=== PATIENT | male | born 1975 | race Caucasian/White ===

== ENCOUNTER 2017-05-15 08:50 | Emergency (ER) | payer MEDICAID ==
[~2017-05-15] VITALS: Ht 167.6 cm; Wt 108.0 kg
[~2017-05-15 08:50] MED LIST: ALD25T PO; CHLO25CA10 PO; FURO-150 PO; LACT10SO7 PO
[2017-05-15] MEDS ORDERED: ondansetron 4mg rapidly disintigrating tab PO ONE (09:10)
[2017-05-15 10:01] LABS: CLARITY,URINE SLIGHTLY CLOUDY (Clear); COLOR,URINE AMBER (Yellow)
[2017-05-15 10:08] LABS: ALANINE AMINOTRANSFERASE 85 U/L (12-78); ALBUMIN 2.6 G/DL (3.4-5.0); ALKALINE PHOSPHATASE 288 IU/L (46-116); ANION GAP 9 (8-16); ASPARTATE AMINO TRANSFERASE 231 U/L (10-37); BLOOD UREA NITROGEN 11 MG/DL (7-18); BUN/CREATININE RATIO 15.3 (5.4-32.0); CALCIUM 8.8 MG/DL (8.5-10.1); CHLORIDE 94 MMOL/L (99-107); CREATININE 0.72 MG/DL (0.60-1.10); GLUCOSE 145 MG/DL (70-104); LIPASE 106 U/L (73-393); SODIUM 135 MMOL/L (135-145); TOTAL CARBON DIOXIDE 32.2 MMOL/L (24-32); eGFR > 90 ML/MIN
[2017-05-15 10:11] LABS: ALBUMIN/GLOBULIN RATIO 0.5 (1.1-1.5); POTASSIUM 3.6 MMOL/L (3.5-5.1); TOTAL PROTEIN 8.1 G/DL (6.4-8.2)
[2017-05-15 10:12] LABS: BASOPHILS # (AUTO) 0.3 X10'3 (0-0.2); BASOPHILS % (AUTO) 1.9 % (0-1); EOSINOPHILS % (AUTO) 0.2 % (0-6); HEMATOCRIT 40.3 % (42.0-52.0); HEMOGLOBIN 14.4 g/dl (14.0-17.9); LYMPHOCYTES % (AUTO) 21.4 % (21-51); MEAN CORPUSCULAR HEMOGLOBIN 34.2 PG (27.0-31.0); MEAN CORPUSCULAR HGB CONC 35.7 % (33.0-36.5); MEAN CORPUSCULAR VOLUME 95.8 FL (78-98); MEAN PLATELET VOLUME 8.6 FL (7.4-10.4); MONOCYTES # (AUTO) 1.7 X10'3 (0-0.9); MONOCYTES % (AUTO) 11.7 % (2-12); NEUTROPHILS # (AUTO) 9.2 X10'3 (1.8-7.7); NEUTROPHILS % (AUTO) 64.8 % (42-75); PLATELET COUNT 181 X10'3 (140-440); RED BLOOD COUNT 4.21 X10'6 (4.70-6.10); RED CELL DISTRIBUTION WIDTH 15.5 % (11.5-14.5); WHITE BLOOD COUNT 14.2 X10'3 (4.5-11.0)
[2017-05-15 10:19] LABS: UA COLLECTION TYPE CLN CATCH MIDSTREAM
[2017-05-15 10:20] LABS: MUCUS STRANDS MODERATE /LPF (Neg); SQUAMOUS EPITHELIAL CELL,UR MODERATE /LPF (FEW)
[2017-05-15 10:21] LABS: BACTERIA,URINE FEW /HPF (Neg); RBC,URINE 0-2 /HPF (0-2); TRANSITIONAL EPI CELLS,URINE FEW /HPF; WBC,URINE 0-4 /HPF (0-4)
[2017-05-15] MEDS ORDERED: iohexol 300mg/ml 100ml inj. ONE (10:54)
[2017-05-15 10:55] LABS: ETHANOL 0.026 GM/DL (0.0-0.010)
[2017-05-15] MEDS ORDERED: CHLO25CA10 PO (11:53)
[2017-05-15] MEDS ORDERED: chlordiazePOXIDE 25mg capsule PO ONE (11:55)
[2017-05-15 12:10] VITALS: BP 122/64
== END 2017-05-15 12:12 | disposition home or self-care (01) ==
LOC: ER 08:50
DX: K70.10 Alcoholic hepatitis without ascites (principal); F17.210 Nicotine dependence, cigarettes, uncomplicated; Z88.8 Allergy status to other drugs, medicaments and biological substances; Z79.899 Other long term (current) drug therapy
CPT/HCPCS: 36415; 74177; 80053; 80320; 81001; 82140; 83690; 85025; 99285; J7030; Q9967

== ENCOUNTER 2017-06-03 18:58 | Inpatient (IN) | payer MEDICAID ==
[~2017-06-03] VITALS: Ht 175.3 cm; Wt 98.8 kg
[2017-06-03] MEDS ORDERED: ondansetron 4mg rapidly disintigrating tab PO ONE (19:35)
[2017-06-03] MEDS ORDERED: normal saline 1000ml 1,000 ML IV ONE (19:35)
[2017-06-03] MEDS ORDERED: proCHLORperazine 10 MG/2 ml inj IV ONE (19:35)
[2017-06-03 20:06] LABS: BASOPHILS % (AUTO) 0 % (0-1); EOSINOPHILS # (AUTO) 0.6 X10'3 (0-0.9); EOSINOPHILS % (AUTO) 2.1 % (0-6); HEMATOCRIT 36.4 % (42.0-52.0); LYMPHOCYTES # (AUTO) 1.2 X10'3 (1.1-4.8); LYMPHOCYTES % (AUTO) 4.4 % (21-51); MEAN CORPUSCULAR HEMOGLOBIN 34.3 PG (27.0-31.0); MEAN CORPUSCULAR HGB CONC 35.8 % (33.0-36.5); MEAN CORPUSCULAR VOLUME 95.8 FL (78-98); MEAN PLATELET VOLUME 9.1 FL (7.4-10.4); MONOCYTES # (AUTO) 0.1 X10'3 (0-0.9); MONOCYTES % (AUTO) 0.5 % (2-12); NEUTROPHILS # (AUTO) 26.2 X10'3 (1.8-7.7); PLATELET COUNT 119 X10'3 (140-440); RED CELL DISTRIBUTION WIDTH 16.3 % (11.5-14.5)
[2017-06-03 20:10] LABS: WHITE BLOOD COUNT 28.2 X10'3 (4.5-11.0)
[2017-06-03 20:16] LABS: INR 2.2 INR; PARTIAL THROMBOPLASTIN TIME 41 SECONDS (22-32); PROTHROMBIN TIME 21.7 SECONDS (9.0-12.0)
[2017-06-03 20:32] LABS: ALANINE AMINOTRANSFERASE 65 U/L (12-78); ALBUMIN 1.5 G/DL (3.4-5.0); ANION GAP 29 (8-16); CALCIUM 6.5 MG/DL (8.5-10.1); CHLORIDE 82 MMOL/L (99-107); CREATININE 15.61 MG/DL (0.60-1.10); ETHANOL < 0.010 GM/DL (0.0-0.010); LIPASE 554 U/L (73-393); SODIUM 127 MMOL/L (135-145); TOTAL CARBON DIOXIDE 16.2 MMOL/L (24-32); eGFR 3 ML/MIN
[2017-06-03 20:45] LABS: ALBUMIN/GLOBULIN RATIO 0.3 (1.1-1.5); ALKALINE PHOSPHATASE 290 IU/L (46-116); ASPARTATE AMINO TRANSFERASE 154 U/L (10-37); TOTAL PROTEIN 6.6 G/DL (6.4-8.2)
[2017-06-03 20:50] LABS: BILIRUBIN,TOTAL 35.1 MG/DL (0.1-1.0); BLOOD UREA NITROGEN 158 MG/DL (7-18); BUN/CREATININE RATIO 10.1 (5.4-32.0); GLUCOSE 112 MG/DL (70-104); POTASSIUM 4.1 MMOL/L (3.5-5.1)
[2017-06-03 20:54] LABS: ANISOCYTOSIS 1+; PLATELET ESTIMATE DECREASED; TARGET CELLS FEW; TOTAL CELLS COUNTED 100
[2017-06-03] MEDS ORDERED: CefTRIAXone 2gm/NS 100ml IVPB 100 ML IV ONE (21:20)
[2017-06-03] MEDS ORDERED: levoFLOXACIN-Levaquin 500mg/D5 100 ML IV ONE (23:30)
[2017-06-04] VITALS (27 sets, daily range): BP systolic 81–113; BP diastolic 45–65
[2017-06-04] MEDS ORDERED: mag hydrox/Alum hydrox/simeth 30ml oral suspension PO ONE
[2017-06-04] MEDS ORDERED: NO HOME MEDS (00:15)
[2017-06-04] MEDS ORDERED: sodium bicarbonate (8.4%) inj. 150 MEQ in dextrose 5%-water 1,000 ML IV SCH (01:05)
[2017-06-04 02:18] LABS: ALBUMIN 1.4 G/DL (3.4-5.0); ANION GAP 25 (8-16); CALCIUM 6.1 MG/DL (8.5-10.1); CHLORIDE 84 MMOL/L (99-107); SODIUM 127 MMOL/L (135-145)
[2017-06-04 02:20] LABS: BLOOD UREA NITROGEN 167 MG/DL (7-18); BUN/CREATININE RATIO 10.7 (5.4-32.0); CREATININE 15.54 MG/DL (0.60-1.10); GLUCOSE 108 MG/DL (70-104); POTASSIUM 4.4 MMOL/L (3.5-5.1); eGFR 3 ML/MIN
[2017-06-04 02:28] LABS: CLARITY,URINE SLIGHTLY CLOUDY (Clear); COLOR,URINE BROWN (Yellow); GLUCOSE, URINE 100 mg/dl (Neg); KETONES,URINE NEGATIVE (Neg); LEUKOCYTE ESTERASE ,URINE NEGATIVE (Neg); NITRITES, URINE NEGATIVE (Neg); OCCULT BLOOD,URINE TRACE-INTACT (Neg); PH,URINE 5.5 (4.8-8.0); PROTEIN,URINE 100 mg/dl (Neg); UROBILINOGEN,URINE 0.2 E.U/dL (0.2-1.0)
[2017-06-04 02:31] LABS: UA COLLECTION TYPE FOLEY CATH
[2017-06-04 02:34] LABS: URINE AMPHETAMINE SCREEN NEGATIVE (Neg); URINE BARBITUATE SCREEN NEGATIVE (Neg); URINE BENZODIAZEPINES SCREEN POSITIVE (Neg); URINE CANNABINOID SCREEN NEGATIVE (Neg); URINE COCAINE SCREEN NEGATIVE (Neg); URINE METHADONE SCREEN NEGATIVE (Neg); URINE OPIATE SCREEN NEGATIVE (Neg); URINE PHENCYCLIDINE SCREEN NEGATIVE (Neg)
[2017-06-04 02:40] LABS: ABG BASE EXCESS -9.8 mmol/L (-2.0-3.0); ABG HCO3 14.6 mmol/L (22.0-26.0); ABG OXYGEN SATURATION 94.1 % (95-98); ABG PCO2 (T) 27.1 mmHg (35.0-48.0); ABG PH (T) 7.346 (7.350-7.450); ABG PO2 (T) 76.4 mmHg (83-108); ALLEN'S TEST Positive; FCOHb 1.1 % (0.5-1.5); FMetHb 0.1 % (0.3-1.12); PATIENT TEMPERATURE 36.4; TOTAL HEMOGLOBIN 12.4 G/dl (14.0-18.0)
[2017-06-04] MEDS ORDERED: sodium bicarbonate 1 MEQ/1 ml inj ONE (02:42)
[2017-06-04 02:46] LABS: BACTERIA,URINE FEW /HPF (Neg); RBC,URINE 0-2 /HPF (0-2); RENAL CELLS, URINE FEW /HPF; SQUAMOUS EPITHELIAL CELL,UR FEW /LPF (FEW)
[2017-06-04 02:47] LABS: AMORPHOUS URATES 1+
[2017-06-04] MEDS ORDERED: normal saline 1000ML IV soln IVB ONE (02:50)
[2017-06-04] MEDS ORDERED: morphine 4 MG/ML inj SYRINge IV PRN (02:55)
[2017-06-04] MEDS ORDERED: dextrose 50%-water 50ml dispensing syringe IV PRN (02:55)
[2017-06-04] MEDS ORDERED: calcium chloride 100 MG/1 ML inj IV ONE ×2 (02:55→02:58)
[2017-06-04] MEDS ORDERED: ondansetron/PF 4mg/2ml inj IV PRN (02:55)
[2017-06-04] MEDS ORDERED: LORazepam 2 mg/ml vial IV PRN (02:55)
[2017-06-04] MEDS ORDERED: acetaminophen 325mg tablet PO PRN ×2 (02:55)
[2017-06-04] MEDS ORDERED: LORazepam 1 MG tablet PO PRN (02:55)
[2017-06-04] MEDS ORDERED: sodium bicarbonate (8.4%) inj. 150 MEQ in sodium chloride 0.45% 850 ML IV SCH (03:06)
[2017-06-04] MEDS: pantoprazole 40 MG vial IV SCH (07:43)
[2017-06-04] MEDS: CefTRIAXone 2gm/NS 100ml IVPB 100 ML IV SCH (07:44)
[2017-06-04 08:08] LABS: CREATINE KINASE 25 U/L (39-308)
[2017-06-04] MEDS: levoFLOXACIN-Levaquin 250mg/D5 50 ML IV SCH (08:40)
[2017-06-04] MEDS: morphine 4 MG/ML inj SYRINge IV PRN ×2 (08:48→14:40)
[2017-06-04] MEDS ORDERED: phytonadione inj. 10 MG in normal saline 100ml IV soln 99 ML IV ONE (09:00)
[2017-06-04] MEDS ORDERED: albumin (human) 25% 100ml IV 100 ML IV PRN (09:05)
[2017-06-04] MEDS ORDERED: heparin 1,000 units/ml 10ml inj HE ONE ×2 (09:10)
[2017-06-04] MEDS ORDERED: mannitol 20% IV solution 250ml 62.5 ML IV ONE (09:10)
[2017-06-04] MEDS ORDERED: heparin 1,000unit/ml 10ml vial 10 ML ONE (11:06)
[2017-06-04] MEDS ORDERED: LIDOcaine 1%/PF (10mg/ml) 5ml vial ONE (11:06)
[2017-06-04] MEDS ORDERED: midazolam 2 mg/2 ml injection ONE (11:06)
[2017-06-04] MEDS ORDERED: fentaNYL/PF 50MCG/1 ML 2ML syringe ONE (11:06)
[2017-06-04] MEDS ORDERED: fentaNYL/PF 50MCG/1 ML 2ML syringe IV PRN (11:10)
[2017-06-04] MEDS ORDERED: midazolam 2 mg/2 ml injection IV PRN (11:10)
[2017-06-04] MEDS: MVI, adult No.4 with vit. K 10 ML in dextrose 5% water 500ml 490 ML IV SCH ×2 (12:26)
[2017-06-04] MEDS: thiamine 100mg tablet PO SCH (12:32)
[2017-06-04] MEDS: lactulose 20gm/30ml cup PO SCH ×2 (13:39→21:06)
[2017-06-04] MEDS: albumin (human) 25% 100 ML IV solution IV SCH (15:28)
[2017-06-04] MEDS: rifaximin 550mg tablet PO SCH (21:06)
[2017-06-05] VITALS (15 sets, daily range): BP systolic 79–110; BP diastolic 40–88
[2017-06-05] MEDS: albumin (human) 25% 100 ML IV solution IV SCH ×4 (00:26→23:36)
[2017-06-05] MEDS: lactulose 20gm/30ml cup PO SCH ×4 (02:14→19:53)
[2017-06-05 03:01] LABS: BASOPHILS % (AUTO) 0 % (0-1); EOSINOPHILS # (AUTO) 0.4 X10'3 (0-0.9); EOSINOPHILS % (AUTO) 1.4 % (0-6); LYMPHOCYTES # (AUTO) 1.5 X10'3 (1.1-4.8); LYMPHOCYTES % (AUTO) 5.8 % (21-51); MEAN PLATELET VOLUME 8.6 FL (7.4-10.4); MONOCYTES # (AUTO) 0.7 X10'3 (0-0.9); MONOCYTES % (AUTO) 2.7 % (2-12); NEUTROPHILS # (AUTO) 23.7 X10'3 (1.8-7.7); NEUTROPHILS % (AUTO) 90.1 % (42-75); PLATELET COUNT 97 X10'3 (140-440)
[2017-06-05 03:10] LABS: INR 1.9 INR; PARTIAL THROMBOPLASTIN TIME 40 SECONDS (22-32)
[2017-06-05 03:24] LABS: ALBUMIN 2.1 G/DL (3.4-5.0); ANION GAP 18 (8-16); BLOOD UREA NITROGEN 100 MG/DL (7-18); CALCIUM 7.1 MG/DL (8.5-10.1); CHLORIDE 92 MMOL/L (99-107); SODIUM 133 MMOL/L (135-145); TOTAL CARBON DIOXIDE 22.6 MMOL/L (24-32)
[2017-06-05 03:50] LABS: ALANINE AMINOTRANSFERASE 75 U/L (12-78); ALBUMIN/GLOBULIN RATIO 0.5 (1.1-1.5); ALKALINE PHOSPHATASE 257 IU/L (46-116); BILIRUBIN,TOTAL 36.1 MG/DL (0.1-1.0); MAGNESIUM 3.1 MG/DL (1.5-2.4); PHOSPHORUS 8.8 MG/DL (2.3-4.5); POTASSIUM 3.9 MMOL/L (3.5-5.1); TOTAL PROTEIN 6.1 G/DL (6.4-8.2)
[2017-06-05 03:52] LABS: ASPARTATE AMINO TRANSFERASE 157 U/L (10-37); BUN/CREATININE RATIO 9.5 (5.4-32.0); CREATININE 10.48 MG/DL (0.60-1.10); GLUCOSE 93 MG/DL (70-104); eGFR 5 ML/MIN
[2017-06-05 05:51] LABS: WHITE BLOOD COUNT 26.3 X10'3 (4.5-11.0)
[2017-06-05 05:52] LABS: HEMATOCRIT 29.7 % (42.0-52.0); HEMOGLOBIN 10.6 g/dl (14.0-17.9); MEAN CORPUSCULAR HEMOGLOBIN 33.9 PG (27.0-31.0); MEAN CORPUSCULAR HGB CONC 35.7 % (33.0-36.5); MEAN CORPUSCULAR VOLUME 95.1 FL (78-98); RED BLOOD COUNT 3.12 X10'6 (4.70-6.10); RED CELL DISTRIBUTION WIDTH 16.2 % (11.5-14.5)
[2017-06-05 05:56] LABS: BANDS% (MANUAL) 2 % (0-10); BASOPHILS % (MANUAL) 2 % (0-1); LYMPHOCYTES % (MANUAL) 4 % (21-51); MONOCYTES % (MANUAL) 6 % (2-12); NEUTROPHILS % (MANUAL) 87 % (42-75); TOTAL CELLS COUNTED 100
[2017-06-05 05:57] LABS: ANISOCYTOSIS 1+; PLATELET ESTIMATE DECREASED; TARGET CELLS FEW
[2017-06-05] MEDS: CefTRIAXone 2gm/NS 100ml IVPB 100 ML IV SCH (08:44)
[2017-06-05] MEDS: MVI, adult No.4 with vit. K 10 ML in dextrose 5% water 500ml 490 ML IV SCH ×2 (08:44)
[2017-06-05] MEDS: rifaximin 550mg tablet PO SCH ×2 (08:47→19:53)
[2017-06-05] MEDS: thiamine 100mg tablet PO SCH (08:47)
[2017-06-05] MEDS: pantoprazole 40 MG vial IV SCH (08:47)
[2017-06-05] MEDS ORDERED: heparin 1,000unit/ml 10ml vial 10 ML IV ONE (10:01)
[2017-06-05] MEDS ORDERED: albumin (human) 25% 100ml IV 100 ML IV PRN (10:05)
[2017-06-05] MEDS ORDERED: epoetin 20,000 units/ml inj IV ONE (10:05)
[2017-06-05] MEDS ORDERED: heparin 1,000 units/ml 10ml inj IV ONE (10:05)
[2017-06-05] MEDS ORDERED: heparin 1,000 units/ml 10ml inj HE ONE ×2 (10:05)
[2017-06-05] MEDS ORDERED: mannitol 20% IV solution 250ml 62.5 ML IV ONE (10:30)
[2017-06-05 13:28] LABS: HBSAG SCREEN Negative (Negative)
[2017-06-05] MEDS ORDERED: ondansetron 4mg rapidly disintigrating tab PO PRN (13:40)
[2017-06-05] MEDS: midodrine tablet 2.5 MG TABLET PO SCH ×2 (17:35→23:34)
[2017-06-05] MEDS: lactobacillus rhamnosus 10,000 MMU CELLS/CAPSULE PO SCH (19:53)
[2017-06-06] MEDS: lactulose 20gm/30ml cup PO SCH ×4 (02:00→20:00)
[2017-06-06 06:00] VITALS: BP 101/45
[2017-06-06 06:18] LABS: BASOPHILS # (AUTO) 0.1 X10'3 (0-0.2); BASOPHILS % (AUTO) 0.4 % (0-1); EOSINOPHILS # (AUTO) 0.4 X10'3 (0-0.9); EOSINOPHILS % (AUTO) 2.1 % (0-6); HEMOGLOBIN 9.4 g/dl (14.0-17.9); LYMPHOCYTES # (AUTO) 0.6 X10'3 (1.1-4.8); LYMPHOCYTES % (AUTO) 3.3 % (21-51); MEAN PLATELET VOLUME 8.3 FL (7.4-10.4); MONOCYTES # (AUTO) 0.7 X10'3 (0-0.9); MONOCYTES % (AUTO) 4.2 % (2-12); NEUTROPHILS # (AUTO) 15.9 X10'3 (1.8-7.7); PLATELET COUNT 65 X10'3 (140-440); RED CELL DISTRIBUTION WIDTH 16.4 % (11.5-14.5); WHITE BLOOD COUNT 17.7 X10'3 (4.5-11.0)
[2017-06-06 06:28] LABS: INR 1.8 INR; PARTIAL THROMBOPLASTIN TIME 44 SECONDS (22-32); PROTHROMBIN TIME 18.5 SECONDS (9.0-12.0)
[2017-06-06 06:44] LABS: ALBUMIN 2.3 G/DL (3.4-5.0); ANION GAP 15 (8-16); BLOOD UREA NITROGEN 63 MG/DL (7-18); CALCIUM 7.3 MG/DL (8.5-10.1); CHLORIDE 96 MMOL/L (99-107); SODIUM 135 MMOL/L (135-145); TOTAL CARBON DIOXIDE 24.3 MMOL/L (24-32)
[2017-06-06 06:46] LABS: ALANINE AMINOTRANSFERASE 66 U/L (12-78); ALKALINE PHOSPHATASE 235 IU/L (46-116); BILIRUBIN,TOTAL 33.8 MG/DL (0.1-1.0); BUN/CREATININE RATIO 7.9 (5.4-32.0); CREATININE 7.99 MG/DL (0.60-1.10); GLUCOSE 90 MG/DL (70-104); MAGNESIUM 2.5 MG/DL (1.5-2.4); PHOSPHORUS 4.9 MG/DL (2.3-4.5); POTASSIUM 3.5 MMOL/L (3.5-5.1); eGFR 7 ML/MIN
[2017-06-06 06:50] LABS: RED BLOOD COUNT 2.76 X10'6 (4.70-6.10)
[2017-06-06 06:51] LABS: HEMATOCRIT 26.4 % (42.0-52.0); MEAN CORPUSCULAR HEMOGLOBIN 33.9 PG (27.0-31.0); MEAN CORPUSCULAR HGB CONC 35.4 % (33.0-36.5); MEAN CORPUSCULAR VOLUME 95.7 FL (78-98)
[2017-06-06 07:04] LABS: ASPARTATE AMINO TRANSFERASE 143 U/L (10-37)
[2017-06-06 07:18] LABS: ALBUMIN/GLOBULIN RATIO 0.9 (1.1-1.5)
[2017-06-06] MEDS: thiamine 100mg tablet PO SCH (08:38)
[2017-06-06] MEDS: rifaximin 550mg tablet PO SCH ×2 (08:38→20:32)
[2017-06-06] MEDS: lactobacillus rhamnosus 10,000 MMU CELLS/CAPSULE PO SCH ×2 (08:38→20:32)
[2017-06-06] MEDS: multivitamins, therapeutics tablet PO SCH (08:38)
[2017-06-06] MEDS: midodrine tablet 2.5 MG TABLET PO SCH ×3 (08:39→23:41)
[2017-06-06] MEDS: albumin (human) 25% 100 ML IV solution IV SCH ×3 (08:41→23:43)
[2017-06-06] MEDS: CefTRIAXone 2gm/NS 100ml IVPB 100 ML IV SCH (08:41)
[2017-06-06] MEDS: levoFLOXACIN-Levaquin 250mg/D5 50 ML IV SCH (08:42)
[2017-06-06] MEDS ORDERED: heparin 1,000 units/ml 10ml inj HE ONE ×2 (08:45)
[2017-06-06] MEDS ORDERED: albumin (human) 25% 100ml IV 100 ML IV PRN (08:45)
[2017-06-06] MEDS: pantoprazole 40 MG vial IV SCH (08:49)
[2017-06-06] MEDS ORDERED: mannitol 20% IV solution 250ml 62.5 ML IV ONE (08:55)
[2017-06-06] MEDS: levoFLOXACIN 250mg tablet PO SCH (11:00)
[2017-06-06 16:11] LABS: LIPASE 340 U/L (73-393)
[2017-06-06 18:00] VITALS: BP 102/44
[2017-06-06 22:00] VITALS: BP 100/56
[2017-06-07] MEDS: lactulose 20gm/30ml cup PO SCH ×3 (02:00→13:25)
[2017-06-07 06:00] VITALS: BP 104/52
[2017-06-07 07:15] LABS: BASOPHILS % (AUTO) 0 % (0-1); EOSINOPHILS # (AUTO) 0.3 X10'3 (0-0.9); EOSINOPHILS % (AUTO) 1.3 % (0-6); HEMATOCRIT 26.5 % (42.0-52.0); HEMOGLOBIN 9.7 g/dl (14.0-17.9); LYMPHOCYTES # (AUTO) 0.8 X10'3 (1.1-4.8); LYMPHOCYTES % (AUTO) 3.4 % (21-51); MEAN CORPUSCULAR HEMOGLOBIN 35.1 PG (27.0-31.0); MEAN CORPUSCULAR HGB CONC 36.7 % (33.0-36.5); MEAN CORPUSCULAR VOLUME 95.6 FL (78-98); MEAN PLATELET VOLUME 7.9 FL (7.4-10.4); MONOCYTES % (AUTO) 4.4 % (2-12); NEUTROPHILS # (AUTO) 21.2 X10'3 (1.8-7.7); NEUTROPHILS % (AUTO) 90.9 % (42-75); PLATELET COUNT 77 X10'3 (140-440); RED BLOOD COUNT 2.77 X10'6 (4.70-6.10); WHITE BLOOD COUNT 23.4 X10'3 (4.5-11.0)
[2017-06-07 07:27] LABS: PARTIAL THROMBOPLASTIN TIME 38 SECONDS (22-32); PROTHROMBIN TIME 19.5 SECONDS (9.0-12.0)
[2017-06-07 07:28] LABS: TOTAL CELLS COUNTED 100
[2017-06-07 07:29] LABS: ANISOCYTOSIS 1+; PLATELET ESTIMATE DECREASED; POIKILOCYTOSIS FEW; TARGET CELLS 1+
[2017-06-07 07:42] LABS: ALBUMIN 2.6 G/DL (3.4-5.0); ANION GAP 13 (8-16); BLOOD UREA NITROGEN 47 MG/DL (7-18); CHLORIDE 97 MMOL/L (99-107); SODIUM 135 MMOL/L (135-145); TOTAL CARBON DIOXIDE 25.1 MMOL/L (24-32)
[2017-06-07 07:46] LABS: ALANINE AMINOTRANSFERASE 61 U/L (12-78); BILIRUBIN,TOTAL 37.2 MG/DL (0.1-1.0); BUN/CREATININE RATIO 6.6 (5.4-32.0); CREATININE 7.11 MG/DL (0.60-1.10); GLUCOSE 106 MG/DL (70-104); MAGNESIUM 2.3 MG/DL (1.5-2.4); PHOSPHORUS 3.9 MG/DL (2.3-4.5); POTASSIUM 3.6 MMOL/L (3.5-5.1); eGFR 8 ML/MIN
[2017-06-07 08:08] LABS: ALKALINE PHOSPHATASE 234 IU/L (46-116); ASPARTATE AMINO TRANSFERASE 132 U/L (10-37)
[2017-06-07 08:22] LABS: ALBUMIN/GLOBULIN RATIO 0.9 (1.1-1.5); TOTAL PROTEIN 5.4 G/DL (6.4-8.2)
[2017-06-07 10:00] VITALS: BP 100/47
[2017-06-07] MEDS: albumin (human) 25% 100 ML IV solution IV SCH ×2 (10:05→17:44)
[2017-06-07] MEDS: multivitamins, therapeutics tablet PO SCH (10:05)
[2017-06-07] MEDS: pantoprazole 40mg Tablet.DR PO SCH (10:06)
[2017-06-07] MEDS: rifaximin 550mg tablet PO SCH ×2 (10:06→19:50)
[2017-06-07] MEDS: thiamine 100mg tablet PO SCH (10:06)
[2017-06-07] MEDS: midodrine tablet 2.5 MG TABLET PO SCH ×2 (10:06→17:42)
[2017-06-07] MEDS: levoFLOXACIN 250mg tablet PO SCH (10:06)
[2017-06-07] MEDS: lactobacillus rhamnosus 10,000 MMU CELLS/CAPSULE PO SCH ×2 (10:06→19:50)
[2017-06-07 18:00] VITALS: BP 105/51
[2017-06-07 18:46] LABS: INR 1.9 INR; PARTIAL THROMBOPLASTIN TIME 37 SECONDS (22-32)
[2017-06-07 22:00] VITALS: BP 114/61
[2017-06-08] MEDS: midodrine tablet 2.5 MG TABLET PO SCH ×3 (00:06→14:58)
[2017-06-08] MEDS: albumin (human) 25% 100 ML IV solution IV SCH ×4 (00:08→16:41)
[2017-06-08 06:23] LABS: BASOPHILS # (AUTO) 0.1 X10'3 (0-0.2); BASOPHILS % (AUTO) 0.2 % (0-1); EOSINOPHILS # (AUTO) 0.5 X10'3 (0-0.9); HEMATOCRIT 26.6 % (42.0-52.0); HEMOGLOBIN 9.8 g/dl (14.0-17.9); LYMPHOCYTES # (AUTO) 0.9 X10'3 (1.1-4.8); LYMPHOCYTES % (AUTO) 3.7 % (21-51); MEAN CORPUSCULAR HEMOGLOBIN 35.3 PG (27.0-31.0); MEAN CORPUSCULAR HGB CONC 36.8 % (33.0-36.5); MEAN PLATELET VOLUME 7.8 FL (7.4-10.4); MONOCYTES % (AUTO) 4.4 % (2-12); NEUTROPHILS # (AUTO) 21.2 X10'3 (1.8-7.7); NEUTROPHILS % (AUTO) 89.7 % (42-75); PLATELET COUNT 83 X10'3 (140-440); RED BLOOD COUNT 2.77 X10'6 (4.70-6.10); RED CELL DISTRIBUTION WIDTH 16.9 % (11.5-14.5); WHITE BLOOD COUNT 23.7 X10'3 (4.5-11.0)
[2017-06-08 06:48] LABS: INR 1.8 INR; PARTIAL THROMBOPLASTIN TIME 39 SECONDS (22-32); PROTHROMBIN TIME 18.7 SECONDS (9.0-12.0)
[2017-06-08 06:51] LABS: ALBUMIN 2.8 G/DL (3.4-5.0); ANION GAP 17 (8-16); BLOOD UREA NITROGEN 61 MG/DL (7-18); CALCIUM 8.5 MG/DL (8.5-10.1); CHLORIDE 95 MMOL/L (99-107); SODIUM 134 MMOL/L (135-145); TOTAL CARBON DIOXIDE 21.9 MMOL/L (24-32)
[2017-06-08 07:07] LABS: TOTAL CELLS COUNTED 100
[2017-06-08 07:09] LABS: ANISOCYTOSIS 1+; HYPOCHROMASIA 1+; PLATELET ESTIMATE DECREASED; POLYCHROMASIA 1+; ROULEAUX 1+; TARGET CELLS 2+; TOXIC GRANULATION 1+
[2017-06-08 07:18] LABS: ALBUMIN/GLOBULIN RATIO 1.3 (1.1-1.5); BUN/CREATININE RATIO 9.5 (5.4-32.0); CREATININE 6.43 MG/DL (0.60-1.10); GLUCOSE 107 MG/DL (70-104); MAGNESIUM 1.8 MG/DL (1.5-2.4); PHOSPHORUS 5.6 MG/DL (2.3-4.5); eGFR 10 ML/MIN
[2017-06-08 07:21] LABS: ALANINE AMINOTRANSFERASE 72 U/L (12-78); ALKALINE PHOSPHATASE 202 IU/L (46-116); ASPARTATE AMINO TRANSFERASE 120 U/L (10-37)
[2017-06-08 07:22] LABS: BILIRUBIN,TOTAL 39.5 MG/DL (0.1-1.0); POTASSIUM 3.6 MMOL/L (3.5-5.1)
[2017-06-08] MEDS ORDERED: normal saline 1000ml 250 ML IV PRN (08:00)
[2017-06-08] MEDS ORDERED: heparin 1,000 units/ml 10ml inj HE ONE ×2 (08:00)
[2017-06-08] MEDS ORDERED: epoetin 20,000 units/ml inj IV ONE (08:00)
[2017-06-08] MEDS ORDERED: heparin 1,000unit/ml 10ml vial 10 ML IV ONE (08:00)
[2017-06-08] MEDS: rifaximin 550mg tablet PO SCH ×2 (08:05→20:20)
[2017-06-08] MEDS: lactobacillus rhamnosus 10,000 MMU CELLS/CAPSULE PO SCH ×2 (08:05→20:20)
[2017-06-08] MEDS: multivitamins, therapeutics tablet PO SCH (08:06)
[2017-06-08] MEDS: pantoprazole 40mg Tablet.DR PO SCH (08:06)
[2017-06-08] MEDS: thiamine 100mg tablet PO SCH (08:06)
[2017-06-08 08:21] VITALS: BP 118/63
[2017-06-08 09:02] VITALS: BP 118/63
[2017-06-08 11:00] VITALS: BP 104/54
[2017-06-08] MEDS: levoFLOXACIN 250mg tablet PO SCH (13:04)
[2017-06-08] MEDS: lactulose 20gm/30ml cup PO SCH (13:06)
[2017-06-08 16:00] VITALS: BP 94/50
[2017-06-09] MEDS: albumin (human) 25% 100 ML IV solution IV SCH ×3 (00:02→16:13)
[2017-06-09] MEDS: midodrine tablet 2.5 MG TABLET PO SCH ×3 (00:03→16:13)
[2017-06-09 05:53] LABS: BASOPHILS % (AUTO) 0.1 % (0-1); EOSINOPHILS # (AUTO) 0.4 X10'3 (0-0.9); EOSINOPHILS % (AUTO) 1.6 % (0-6); HEMATOCRIT 27.1 % (42.0-52.0); HEMOGLOBIN 9.8 g/dl (14.0-17.9); LYMPHOCYTES # (AUTO) 0.8 X10'3 (1.1-4.8); LYMPHOCYTES % (AUTO) 3.1 % (21-51); MEAN CORPUSCULAR HGB CONC 36.2 % (33.0-36.5); MEAN CORPUSCULAR VOLUME 96.8 FL (78-98); MEAN PLATELET VOLUME 8.1 FL (7.4-10.4); MONOCYTES # (AUTO) 1.4 X10'3 (0-0.9); MONOCYTES % (AUTO) 5.2 % (2-12); NEUTROPHILS # (AUTO) 24.2 X10'3 (1.8-7.7); PLATELET COUNT 92 X10'3 (140-440)
[2017-06-09 06:05] LABS: WHITE BLOOD COUNT 26.8 X10'3 (4.5-11.0)
[2017-06-09 06:12] LABS: INR 1.8 INR; PARTIAL THROMBOPLASTIN TIME 38 SECONDS (22-32); PROTHROMBIN TIME 17.8 SECONDS (9.0-12.0)
[2017-06-09 06:19] LABS: ANISOCYTOSIS 1+; PLATELET ESTIMATE DECREASED; TOTAL CELLS COUNTED 100
[2017-06-09 06:20] LABS: HYPOCHROMASIA 1+; POLYCHROMASIA 1+; TARGET CELLS 2+; TOXIC GRANULATION 1+
[2017-06-09 06:59] LABS: ALBUMIN 2.9 G/DL (3.4-5.0); BLOOD UREA NITROGEN 43 MG/DL (7-18); CALCIUM 8.5 MG/DL (8.5-10.1); TOTAL CARBON DIOXIDE 23.4 MMOL/L (24-32)
[2017-06-09 07:05] VITALS: BP 111/52
[2017-06-09 07:24] LABS: ALANINE AMINOTRANSFERASE 59 U/L (12-78); ALBUMIN/GLOBULIN RATIO 1.2 (1.1-1.5); ALKALINE PHOSPHATASE 190 IU/L (46-116); ASPARTATE AMINO TRANSFERASE 96 U/L (10-37); BUN/CREATININE RATIO 6.8 (5.4-32.0); CREATININE 6.35 MG/DL (0.60-1.10); GLUCOSE 111 MG/DL (70-104); MAGNESIUM 2.1 MG/DL (1.5-2.4); PHOSPHORUS 3.5 MG/DL (2.3-4.5); POTASSIUM 3.8 MMOL/L (3.5-5.1); SODIUM 136 MMOL/L (135-145); TOTAL PROTEIN 5.4 G/DL (6.4-8.2); eGFR 10 ML/MIN
[2017-06-09 07:31] LABS: BILIRUBIN,TOTAL 40.6 MG/DL (0.1-1.0)
[2017-06-09 07:32] LABS: ANION GAP 16 (8-16); CHLORIDE 97 MMOL/L (99-107)
[2017-06-09] MEDS: pantoprazole 40mg Tablet.DR PO SCH (08:41)
[2017-06-09] MEDS: thiamine 100mg tablet PO SCH (08:41)
[2017-06-09] MEDS: lactobacillus rhamnosus 10,000 MMU CELLS/CAPSULE PO SCH ×2 (08:41→20:52)
[2017-06-09] MEDS: rifaximin 550mg tablet PO SCH ×2 (08:41→20:52)
[2017-06-09] MEDS: multivitamins, therapeutics tablet PO SCH (08:43)
[2017-06-09] MEDS: levoFLOXACIN 250mg tablet PO SCH (11:36)
[2017-06-09] MEDS ORDERED: morphine 2 MG/ML inj. syringe IV PRN (12:08)
[2017-06-09 12:20] VITALS: BP 97/47
[2017-06-09] MEDS: morphine 2 MG/ML inj. syringe IV PRN ×2 (12:31→16:13)
[2017-06-09] MEDS: lactulose 20gm/30ml cup PO SCH (12:31)
[2017-06-09 18:00] VITALS: BP 96/55
[2017-06-09] MEDS: HYDROmorphone 2mg tablet PO PRN (20:57)
[2017-06-09 22:00] VITALS: BP 109/63
[2017-06-10] MEDS: midodrine tablet 2.5 MG TABLET PO SCH ×3 (00:08→19:24)
[2017-06-10] MEDS: HYDROmorphone 2mg tablet PO PRN ×5 (00:57→19:25)
[2017-06-10 06:00] VITALS: BP 106/55
[2017-06-10 06:03] LABS: INR 1.8 INR; PARTIAL THROMBOPLASTIN TIME 37 SECONDS (22-32)
[2017-06-10 06:31] LABS: ALANINE AMINOTRANSFERASE 45 U/L (12-78); ALBUMIN 2.9 G/DL (3.4-5.0); CALCIUM 8.9 MG/DL (8.5-10.1); CHLORIDE 95 MMOL/L (99-107); CREATININE 9.06 MG/DL (0.60-1.10); TOTAL CARBON DIOXIDE 23.2 MMOL/L (24-32); eGFR 6 ML/MIN
[2017-06-10 06:49] LABS: BASOPHILS # (AUTO) 0.1 X10'3 (0-0.2); BASOPHILS % (AUTO) 0.3 % (0-1); EOSINOPHILS # (AUTO) 0.7 X10'3 (0-0.9); EOSINOPHILS % (AUTO) 2.3 % (0-6); GLUCOSE 96 MG/DL (70-104); HEMATOCRIT 28.4 % (42.0-52.0); HEMOGLOBIN 10.1 g/dl (14.0-17.9); LYMPHOCYTES # (AUTO) 1.9 X10'3 (1.1-4.8); LYMPHOCYTES % (AUTO) 6.1 % (21-51); MEAN CORPUSCULAR HGB CONC 35.7 % (33.0-36.5); MEAN CORPUSCULAR VOLUME 98.1 FL (78-98); MEAN PLATELET VOLUME 7.9 FL (7.4-10.4); MONOCYTES % (AUTO) 3.2 % (2-12); NEUTROPHILS # (AUTO) 28.3 X10'3 (1.8-7.7); NEUTROPHILS % (AUTO) 88.1 % (42-75); PLATELET COUNT 103 X10'3 (140-440); POTASSIUM 4.1 MMOL/L (3.5-5.1); RED BLOOD COUNT 2.89 X10'6 (4.70-6.10); RED CELL DISTRIBUTION WIDTH 16.7 % (11.5-14.5)
[2017-06-10 06:50] LABS: ANION GAP 16 (8-16); SODIUM 134 MMOL/L (135-145)
[2017-06-10 06:53] LABS: WHITE BLOOD COUNT 32.1 X10'3 (4.5-11.0)
[2017-06-10 06:54] LABS: ALKALINE PHOSPHATASE 210 IU/L (46-116); ASPARTATE AMINO TRANSFERASE 104 U/L (10-37)
[2017-06-10 06:56] LABS: ALBUMIN/GLOBULIN RATIO 0.8 (1.1-1.5); BILIRUBIN,TOTAL 39.9 MG/DL (0.1-1.0); BLOOD UREA NITROGEN 71 MG/DL (7-18); BUN/CREATININE RATIO 7.8 (5.4-32.0); MAGNESIUM 2.4 MG/DL (1.5-2.4); PHOSPHORUS 5.1 MG/DL (2.3-4.5); TOTAL PROTEIN 6.5 G/DL (6.4-8.2)
[2017-06-10 07:22] LABS: ANISOCYTOSIS 1+; PLATELET ESTIMATE DECREASED; SPHEROCYTES 1+; TARGET CELLS 1+; TOTAL CELLS COUNTED 100
[2017-06-10 07:23] LABS: SCHISTOCYTES FEW; TEAR DROP CELLS FEW
[2017-06-10] MEDS: lactobacillus rhamnosus 10,000 MMU CELLS/CAPSULE PO SCH ×2 (09:09→19:24)
[2017-06-10] MEDS: pantoprazole 40mg Tablet.DR PO SCH (09:12)
[2017-06-10] MEDS: multivitamins, therapeutics tablet PO SCH (09:13)
[2017-06-10] MEDS: rifaximin 550mg tablet PO SCH ×2 (09:13→19:25)
[2017-06-10] MEDS: thiamine 100mg tablet PO SCH (09:14)
[2017-06-10] MEDS ORDERED: midazolam 2 mg/2 ml injection IV PRN (09:55)
[2017-06-10] MEDS ORDERED: heparin 1,000 units/ml 10ml inj ICATH ONE (09:55)
[2017-06-10] MEDS ORDERED: LIDOcaine 1%/PF (10mg/ml) 5ml vial SQ ONE (09:55)
[2017-06-10] MEDS ORDERED: fentaNYL/PF 50MCG/1 ML 2ML syringe IV PRN (09:55)
[2017-06-10] MEDS ORDERED: LIDOcaine 1%/PF (10mg/ml) 5ml vial ONE (10:12)
[2017-06-10 11:00] VITALS: BP 94/50
[2017-06-10] MEDS: levoFLOXACIN 250mg tablet PO SCH (12:15)
[2017-06-10] MEDS: lactulose 20gm/30ml cup PO SCH (15:33)
[2017-06-10 18:00] VITALS: BP 105/54
[2017-06-10 22:00] VITALS: BP 107/52
[2017-06-11] VITALS (7 sets, daily range): BP systolic 94–112; BP diastolic 43–68
[2017-06-11] MEDS: HYDROmorphone 2mg tablet PO PRN ×4 (01:28→23:44)
[2017-06-11] MEDS: midodrine tablet 2.5 MG TABLET PO SCH ×4 (01:29→23:44)
[2017-06-11 03:19] LABS: CLARITY,URINE SLIGHTLY CLOUDY (Clear); COLOR,URINE YELLOW (Yellow); GLUCOSE, URINE 100 mg/dl (Neg); KETONES,URINE TRACE mg/dl (Neg); LEUKOCYTE ESTERASE ,URINE NEGATIVE (Neg); NITRITES, URINE NEGATIVE (Neg); OCCULT BLOOD,URINE SMALL (Neg); PH,URINE 5.5 (4.8-8.0); PROTEIN,URINE 100 mg/dl (Neg); UROBILINOGEN,URINE 0.2 E.U/dL (0.2-1.0)
[2017-06-11 03:38] LABS: SODIUM,URINE RANDOM < 15 MEQ/L
[2017-06-11 04:13] LABS: UA COLLECTION TYPE CLN CATCH MIDSTREAM
[2017-06-11 04:16] LABS: WBC,URINE 0-4 /HPF (0-4)
[2017-06-11 05:04] LABS: AMORPHOUS URATES 1+; BACTERIA,URINE NONE SEEN /HPF (Neg); SQUAMOUS EPITHELIAL CELL,UR FEW /LPF (FEW)
[2017-06-11 05:40] LABS: UA EOSINOPHILS NO EOS /HPF
[2017-06-11 07:06] LABS: BASOPHILS % (AUTO) 0.2 % (0-1); EOSINOPHILS # (AUTO) 0.5 X10'3 (0-0.9); EOSINOPHILS % (AUTO) 1.6 % (0-6); LYMPHOCYTES # (AUTO) 1.3 X10'3 (1.1-4.8); LYMPHOCYTES % (AUTO) 4.5 % (21-51); MEAN PLATELET VOLUME 7.9 FL (7.4-10.4); MONOCYTES # (AUTO) 1.4 X10'3 (0-0.9); NEUTROPHILS # (AUTO) 25.1 X10'3 (1.8-7.7); NEUTROPHILS % (AUTO) 88.7 % (42-75); PLATELET COUNT 119 X10'3 (140-440)
[2017-06-11 07:21] LABS: INR 1.8 INR; PARTIAL THROMBOPLASTIN TIME 38 SECONDS (22-32); PROTHROMBIN TIME 17.8 SECONDS (9.0-12.0)
[2017-06-11 07:22] LABS: HEMATOCRIT 29.3 % (42.0-52.0); HEMOGLOBIN 10.4 g/dl (14.0-17.9); MEAN CORPUSCULAR HEMOGLOBIN 34.4 PG (27.0-31.0); MEAN CORPUSCULAR HGB CONC 35.5 % (33.0-36.5); RED BLOOD COUNT 3.02 X10'6 (4.70-6.10)
[2017-06-11 07:25] LABS: WHITE BLOOD COUNT 28.3 X10'3 (4.5-11.0)
[2017-06-11 07:31] LABS: ALBUMIN 2.6 G/DL (3.4-5.0); ANION GAP 19 (8-16); BLOOD UREA NITROGEN 85 MG/DL (7-18); CALCIUM 8.6 MG/DL (8.5-10.1); CHLORIDE 92 MMOL/L (99-107); LYMPHOCYTES % (MANUAL) 1 % (21-51); MONOCYTES % (MANUAL) 8 % (2-12); NEUTROPHILS % (MANUAL) 90 % (42-75); SODIUM 131 MMOL/L (135-145); TOTAL CARBON DIOXIDE 19.9 MMOL/L (24-32); TOTAL CELLS COUNTED 100
[2017-06-11 07:32] LABS: ANISOCYTOSIS 1+; BASOPHILS % (MANUAL) 1 % (0-1); PLATELET ESTIMATE DECREASED; TARGET CELLS 1+
[2017-06-11 07:33] LABS: SCHISTOCYTES FEW
[2017-06-11 07:42] LABS: ALANINE AMINOTRANSFERASE 45 U/L (12-78); BILIRUBIN,TOTAL 41.6 MG/DL (0.1-1.0); BUN/CREATININE RATIO 7.6 (5.4-32.0); CREATININE 11.16 MG/DL (0.60-1.10); GLUCOSE 97 MG/DL (70-104); MAGNESIUM 2.3 MG/DL (1.5-2.4); PHOSPHORUS 6.6 MG/DL (2.3-4.5); POTASSIUM 4.7 MMOL/L (3.5-5.1); eGFR 5 ML/MIN
[2017-06-11] MEDS ORDERED: heparin 1,000 units/ml 10ml inj HE ONE ×2 (08:00)
[2017-06-11] MEDS ORDERED: normal saline 1000ml 250 ML IV PRN (08:00)
[2017-06-11] MEDS ORDERED: heparin 1,000unit/ml 10ml vial 10 ML IV ONE (08:00)
[2017-06-11] MEDS ORDERED: epoetin 20,000 units/ml inj IV ONE (08:00)
[2017-06-11 08:24] LABS: ALBUMIN/GLOBULIN RATIO 0.8 (1.1-1.5)
[2017-06-11 08:29] LABS: ALKALINE PHOSPHATASE 226 IU/L (46-116); ASPARTATE AMINO TRANSFERASE 102 U/L (10-37)
[2017-06-11] MEDS: lactobacillus rhamnosus 10,000 MMU CELLS/CAPSULE PO SCH ×2 (08:53→19:52)
[2017-06-11] MEDS: multivitamins, therapeutics tablet PO SCH (08:56)
[2017-06-11] MEDS: thiamine 100mg tablet PO SCH (08:57)
[2017-06-11] MEDS: rifaximin 550mg tablet PO SCH ×2 (08:58→19:52)
[2017-06-11] MEDS ORDERED: albumin (human) 25% 100 ML IV solution IV SCH (09:15)
[2017-06-11] MEDS: levoFLOXACIN 250mg tablet PO SCH (11:17)
[2017-06-11] MEDS ORDERED: normal saline 1000ml 1,000 ML IV SCH (14:03)
[2017-06-11] MEDS ORDERED: heparin 1,000 units/ml 10ml inj ICATH ONE (14:05)
[2017-06-11] MEDS ORDERED: fentaNYL/PF 50MCG/1 ML 2ML syringe IV PRN (14:05)
[2017-06-11] MEDS ORDERED: LIDOcaine 1%/PF (10mg/ml) 5ml vial ONE (14:16)
[2017-06-11] MEDS ORDERED: heparin 1,000unit/ml 10ml vial 10 ML ONE (14:44)
[2017-06-11] MEDS ORDERED: fentaNYL/PF 50MCG/1 ML 2ML syringe ONE (14:45)
[2017-06-12] MEDS: HYDROmorphone 2mg tablet PO PRN ×4 (04:17→16:55)
[2017-06-12 05:54] LABS: BASOPHILS % (AUTO) 0.1 % (0-1); EOSINOPHILS # (AUTO) 0.4 X10'3 (0-0.9); EOSINOPHILS % (AUTO) 1.8 % (0-6); HEMATOCRIT 25.2 % (42.0-52.0); LYMPHOCYTES # (AUTO) 0.8 X10'3 (1.1-4.8); LYMPHOCYTES % (AUTO) 3.8 % (21-51); MEAN CORPUSCULAR HEMOGLOBIN 34.9 PG (27.0-31.0); MEAN CORPUSCULAR HGB CONC 35.7 % (33.0-36.5); MEAN CORPUSCULAR VOLUME 97.6 FL (78-98); MEAN PLATELET VOLUME 8.1 FL (7.4-10.4); MONOCYTES # (AUTO) 1.4 X10'3 (0-0.9); MONOCYTES % (AUTO) 6.7 % (2-12); NEUTROPHILS # (AUTO) 18.8 X10'3 (1.8-7.7); NEUTROPHILS % (AUTO) 87.6 % (42-75); PLATELET COUNT 130 X10'3 (140-440); RED BLOOD COUNT 2.59 X10'6 (4.70-6.10); RED CELL DISTRIBUTION WIDTH 17.3 % (11.5-14.5); WHITE BLOOD COUNT 21.5 X10'3 (4.5-11.0)
[2017-06-12 06:00] VITALS: BP 92/54
[2017-06-12 06:19] LABS: INR 1.8 INR; PARTIAL THROMBOPLASTIN TIME 39 SECONDS (22-32); PROTHROMBIN TIME 18.5 SECONDS (9.0-12.0)
[2017-06-12 06:43] LABS: ALANINE AMINOTRANSFERASE 46 U/L (12-78); ALBUMIN 2.4 G/DL (3.4-5.0); ANION GAP 13 (8-16); BLOOD UREA NITROGEN 40 MG/DL (7-18); CALCIUM 8.3 MG/DL (8.5-10.1); CHLORIDE 96 MMOL/L (99-107); CREATININE 6.65 MG/DL (0.60-1.10); SODIUM 133 MMOL/L (135-145); TOTAL CARBON DIOXIDE 24.3 MMOL/L (24-32); eGFR 9 ML/MIN
[2017-06-12 06:54] LABS: ALKALINE PHOSPHATASE 236 IU/L (46-116); ASPARTATE AMINO TRANSFERASE 110 U/L (10-37)
[2017-06-12 06:56] LABS: ALBUMIN/GLOBULIN RATIO 0.8 (1.1-1.5); TOTAL PROTEIN 5.5 G/DL (6.4-8.2)
[2017-06-12 06:58] LABS: BILIRUBIN,TOTAL 39.3 MG/DL (0.1-1.0); GLUCOSE 114 MG/DL (70-104); PHOSPHORUS 4.2 MG/DL (2.3-4.5); POTASSIUM 4.6 MMOL/L (3.5-5.1)
[2017-06-12] MEDS: multivitamins, therapeutics tablet PO SCH (08:03)
[2017-06-12] MEDS: rifaximin 550mg tablet PO SCH (08:03)
[2017-06-12] MEDS: thiamine 100mg tablet PO SCH (08:04)
[2017-06-12] MEDS: midodrine tablet 2.5 MG TABLET PO SCH ×2 (08:04→16:00)
[2017-06-12] MEDS: lactobacillus rhamnosus 10,000 MMU CELLS/CAPSULE PO SCH (08:04)
[2017-06-12 10:00] VITALS: BP 93/46
[2017-06-12] MEDS: levoFLOXACIN 250mg tablet PO SCH (11:22)
[2017-06-12] MEDS ORDERED: THI100T PO (15:08)
[2017-06-12] MEDS ORDERED: FOLI1TAB16 PO (15:08)
[2017-06-12] MEDS ORDERED: RIFA550T PO (15:08)
[2017-06-12] MEDS ORDERED: FOLI1CAP8 PO (15:08)
[2017-06-12] MEDS ORDERED: MIDO5TAB PO (15:08)
== END 2017-06-12 17:12 | disposition home or self-care (01) | DRG 282 ==
LOC: ER 18:59 → ED HOLD 06-04 02:54 → ICU 2S 06-04 04:32 → ORTHO 4S 06-05 13:28
PROVIDERS: ADMIT Internal Medicine Critical Care Medicine; ATTEND Internal Medicine Critical Care Medicine
PROC: 5A1D70Z Performance of Urinary Filtration, Intermittent, Less than 6 Hours Per Day (ICD-10-PCS; principal; 2017-06-04)
PROC: 02HV33Z Insertion of Infusion Device into Superior Vena Cava, Percutaneous Approach (ICD-10-PCS; 2017-06-04)
PROC: B548ZZA Ultrasonography of Superior Vena Cava, Guidance (ICD-10-PCS; 2017-06-04)
PROC: 5A1D70Z Performance of Urinary Filtration, Intermittent, Less than 6 Hours Per Day (ICD-10-PCS; 2017-06-05)
PROC: 5A1D70Z Performance of Urinary Filtration, Intermittent, Less than 6 Hours Per Day (ICD-10-PCS; 2017-06-06)
PROC: 5A1D70Z Performance of Urinary Filtration, Intermittent, Less than 6 Hours Per Day (ICD-10-PCS; 2017-06-08)
PROC: 5A1D70Z Performance of Urinary Filtration, Intermittent, Less than 6 Hours Per Day (ICD-10-PCS; 2017-06-11)
PROC: 0JH63XZ Insertion of Tunneled Vascular Access Device into Chest Subcutaneous Tissue and Fascia, Percutaneous Approach (ICD-10-PCS; 2017-06-11)
PROC: 02H633Z Insertion of Infusion Device into Right Atrium, Percutaneous Approach (ICD-10-PCS; 2017-06-11)
PROC: B244ZZZ Ultrasonography of Right Heart (ICD-10-PCS; 2017-06-11)
DX: K85.90 Acute pancreatitis without necrosis or infection, unspecified (principal); K76.7 Hepatorenal syndrome; N17.9 Acute kidney failure, unspecified; E83.51 Hypocalcemia; D68.9 Coagulation defect, unspecified; K76.6 Portal hypertension; K70.11 Alcoholic hepatitis with ascites; E87.1 Hypo-osmolality and hyponatremia; F17.210 Nicotine dependence, cigarettes, uncomplicated; K70.31 Alcoholic cirrhosis of liver with ascites; K72.90 Hepatic failure, unspecified without coma; K76.0 Fatty (change of) liver, not elsewhere classified; Z99.2 Dependence on renal dialysis; Z91.018 Allergy to other foods; Z79.899 Other long term (current) drug therapy
CPT/HCPCS: 36415; 36556; 36558; 36600; 71045; 74176; 76700; 76937; 77001; 80048; 80053; 80305; 80320; 81001; 82140; 82550; 82570; 82803; 82948; 83605; 83690; 83735; 84100; 84133; 84300; 84484; 84540; 85018; 85025; 85610; 85730; 86870; 86885; 86900; 86901; 86902; 86905; 87040; 87070; 87088; 87207; 87340; 93005; 96361; 96365; 96367; 96375; 99152; 99153; 99291; A4620; A6213; A6257; A6449; C1750; C1751; C1758; C1894; C9113; G0257; J0696; J0780; J0885; J1644; J1956; J2001; J2150; J2250; J2270; J3010; J3430; J7030; J7042; J7060; P9047

== ENCOUNTER 2017-06-15 19:48 | Emergency (ER) | payer MEDICAID ==
[~2017-06-15] VITALS: Ht 175.3 cm; Wt 102.0 kg
[~2017-06-15 19:48] MED LIST changes: -ALD25T PO; -CHLO25CA10 PO; +FOLI1CAP8 PO; +FOLI1TAB16 PO; -FURO-150 PO; -LACT10SO7 PO; +MIDO5TAB PO; +NO HOME MEDS; +RIFA550T PO; +THI100T PO
[2017-06-15 19:51] VITALS: BP 114/57
[2017-06-15] MEDS ORDERED: rifaximin 550mg tablet PO STA (19:59)
[2017-06-15] MEDS ORDERED: midodrine 5mg tablet PO ONE (20:05)
== END 2017-06-15 20:38 | disposition home or self-care (01) ==
LOC: ER 19:49
DX: K76.9 Liver disease, unspecified (principal); Z76.0 Encounter for issue of repeat prescription; Z88.8 Allergy status to other drugs, medicaments and biological substances; Z79.899 Other long term (current) drug therapy
CPT/HCPCS: 99283

== ENCOUNTER 2017-06-19 13:56 | Emergency (ER) | payer MEDICAID ==
[~2017-06-19] VITALS: Ht 5787.1 cm; Wt 98.0 kg
[2017-06-19] MEDS ORDERED: albumin (Human) 5% 250 ML IV solution IV STA (17:53)
[2017-06-19 19:20] VITALS: BP 118/53
== END 2017-06-19 19:22 | disposition home or self-care (01) ==
LOC: ER 13:56
DX: R18.8 Other ascites (principal); Z88.8 Allergy status to other drugs, medicaments and biological substances; Z79.899 Other long term (current) drug therapy
CPT/HCPCS: 49083; 99285

== ENCOUNTER 2017-07-01 10:18 | Inpatient (IN) | payer MEDICAID ==
[~2017-07-01] VITALS: Ht 175.3 cm; Wt 111.3 kg
[2017-07-01 11:15] LABS: BASOPHILS % (AUTO) 0 % (0-1); EOSINOPHILS # (AUTO) 0.7 X10'3 (0-0.9); EOSINOPHILS % (AUTO) 2.2 % (0-6); HEMATOCRIT 32.5 % (42.0-52.0); HEMOGLOBIN 11.6 g/dl (14.0-17.9); LYMPHOCYTES # (AUTO) 2.2 X10'3 (1.1-4.8); LYMPHOCYTES % (AUTO) 6.7 % (21-51); MEAN CORPUSCULAR HGB CONC 35.6 % (33.0-36.5); MEAN CORPUSCULAR VOLUME 95.4 FL (78-98); MEAN PLATELET VOLUME 9.3 FL (7.4-10.4); MONOCYTES # (AUTO) 1.3 X10'3 (0-0.9); NEUTROPHILS % (AUTO) 87.1 % (42-75); PLATELET COUNT 108 X10'3 (140-440); RED BLOOD COUNT 3.41 X10'6 (4.70-6.10)
[2017-07-01 11:27] LABS: INR 2.8 INR; PARTIAL THROMBOPLASTIN TIME 63 SECONDS (22-32); PROTHROMBIN TIME 27.6 SECONDS (9.0-12.0)
[2017-07-01 11:35] LABS: WHITE BLOOD COUNT 33.3 X10'3 (4.5-11.0)
[2017-07-01 11:44] LABS: ALANINE AMINOTRANSFERASE 59 U/L (12-78); ALBUMIN 1.4 G/DL (3.4-5.0); ANION GAP 12 (8-16); BLOOD UREA NITROGEN 49 MG/DL (7-18); BUN/CREATININE RATIO 6.5 (5.4-32.0); CALCIUM 8.3 MG/DL (8.5-10.1); CHLORIDE 94 MMOL/L (99-107); CREATININE 7.53 MG/DL (0.60-1.10); SODIUM 134 MMOL/L (135-145); TOTAL CARBON DIOXIDE 27.9 MMOL/L (24-32); eGFR 8 ML/MIN
[2017-07-01 11:47] LABS: ALBUMIN/GLOBULIN RATIO 0.3 (1.1-1.5); BILIRUBIN,TOTAL 34.4 MG/DL (0.1-1.0); TOTAL PROTEIN 5.9 G/DL (6.4-8.2)
[2017-07-01 12:03] LABS: ALKALINE PHOSPHATASE 349 IU/L (46-116); ASPARTATE AMINO TRANSFERASE 160 U/L (10-37); GLUCOSE 116 MG/DL (70-104)
[2017-07-01 12:06] LABS: ANISOCYTOSIS 1+; PLATELET ESTIMATE DECREASED; TOTAL CELLS COUNTED 100
[2017-07-01 12:10] LABS: SCHISTOCYTES FEW; SPHEROCYTES FEW; TARGET CELLS 1+; TEAR DROP CELLS 1+
[2017-07-01 12:11] LABS: ROULEAUX 2+
[2017-07-01] MEDS ORDERED: phytonadione inj. 1 MG in normal saline 100ml IV soln 99.9 ML IV ONE (13:40)
[2017-07-01] MEDS ORDERED: magnesium 2GM in 50ml NS 50 ML IV PRN (14:30)
[2017-07-01] MEDS ORDERED: potassium Cl 20 mEq SR tablet PO PRN ×2 (14:30)
[2017-07-01] MEDS: K, MAG and/or Phos replacement - Verify level? MC SCH (14:30)
[2017-07-01] MEDS ORDERED: magnesium 4gm in 100ml NS 100 ML IV PRN (14:30)
[2017-07-01] MEDS ORDERED: magnesium Cl slow-release 64mg tablet PO PRN (14:30)
[2017-07-01 14:46] LABS: ALBUMIN,BODY FLUID < 0.6 G/DL
[2017-07-01] MEDS ORDERED: midodrine 5mg tablet PO SCH (16:00)
[2017-07-01 16:10] LABS: BASOPHILS,BODY FLUID 1 %; EOSINOPHILS,BODY FLUID 1 %; LYMPHOCYTES,BODY FLUID 21 %; MONOCYTES,BODY FLUID 69 %; NEUTROPHILS,BODY FLUID 8 %
[2017-07-01 16:11] LABS: BFAPPEAR HAZY
[2017-07-01 16:12] LABS: BF MESOTHELIAL CELLS FEW; BF RBC COUNT 1050 /CU MM; BF WBC COUNT 30 /CU MM (0-1000); BFCOLOR AMBER; BFVOLUME 7 ML
[2017-07-01 16:48] VITALS: BP 92/36
[2017-07-01] MEDS ORDERED: vancomycin/NS 1 GM ADD-VANTAGE 250 ML IV ONE (17:55)
[2017-07-01 18:00] VITALS: BP 100/57
[2017-07-01] MEDS ORDERED: cefTAZidime inj. 1 GM in normal saline 100ml IV soln 100 ML IV SCH (19:00)
[2017-07-01] MEDS ORDERED: cefTAZidime inj. 1 GM in dextrose 5%-water 50ml 50 ML IV SCH (19:00)
[2017-07-01] MEDS: rifaximin 550mg tablet PO SCH (20:54)
[2017-07-01] MEDS: amox tr/potassium clavulanate 500mg/125mg TAB PO SCH (20:55)
[2017-07-01] MEDS: famotidine 20mg tablet PO SCH (20:56)
[2017-07-01 22:00] VITALS: BP 97/51
[2017-07-01] MEDS: HYDROcodone/acetaminophen 5mg/325mg tablet PO PRN (22:00)
[2017-07-01] MEDS: diatr meglu/diatrizoate 30ml oral sol.-(3 dose) bottle PO SCH (22:11)
[2017-07-02 02:00] VITALS: BP 93/52
[2017-07-02] MEDS: HYDROcodone/acetaminophen 5mg/325mg tablet PO PRN ×4 (02:36→19:43)
[2017-07-02] MEDS: midodrine 5mg tablet PO SCH ×3 (04:56→20:16)
[2017-07-02] MEDS ORDERED: normal saline 1000ml 250 ML IV PRN (05:46)
[2017-07-02 06:00] VITALS: BP 94/46
[2017-07-02 06:11] LABS: INR 2.3 INR; PARTIAL THROMBOPLASTIN TIME 67 SECONDS (22-32); PROTHROMBIN TIME 22.9 SECONDS (9.0-12.0)
[2017-07-02 06:31] LABS: ALBUMIN 1.3 G/DL (3.4-5.0); BLOOD UREA NITROGEN 55 MG/DL (7-18); CALCIUM 8.1 MG/DL (8.5-10.1); CHLORIDE 95 MMOL/L (99-107); TOTAL CARBON DIOXIDE 26.5 MMOL/L (24-32)
[2017-07-02 06:54] LABS: ALBUMIN/GLOBULIN RATIO 0.3 (1.1-1.5); ANION GAP 20 (8-16); BUN/CREATININE RATIO 7.2 (5.4-32.0); CREATININE 7.69 MG/DL (0.60-1.10); GLUCOSE 74 MG/DL (70-104); PHOSPHORUS 6.8 MG/DL (2.3-4.5); POTASSIUM 5.2 MMOL/L (3.5-5.1); SODIUM 141 MMOL/L (135-145); TOTAL PROTEIN 5.5 G/DL (6.4-8.2); eGFR 8 ML/MIN
[2017-07-02 07:08] LABS: ALANINE AMINOTRANSFERASE 58 U/L (12-78); ALKALINE PHOSPHATASE 303 IU/L (46-116); ASPARTATE AMINO TRANSFERASE 136 U/L (10-37); BILIRUBIN,TOTAL 30.9 MG/DL (0.1-1.0); MAGNESIUM 2.3 MG/DL (1.5-2.4)
[2017-07-02 07:12] LABS: BASOPHILS % (AUTO) 0.1 % (0-1); EOSINOPHILS # (AUTO) 0.7 X10'3 (0-0.9); EOSINOPHILS % (AUTO) 2.4 % (0-6); HEMATOCRIT 30.3 % (42.0-52.0); HEMOGLOBIN 10.5 g/dl (14.0-17.9); LYMPHOCYTES # (AUTO) 1.7 X10'3 (1.1-4.8); LYMPHOCYTES % (AUTO) 6.3 % (21-51); MEAN CORPUSCULAR HEMOGLOBIN 33.3 PG (27.0-31.0); MEAN CORPUSCULAR HGB CONC 34.7 % (33.0-36.5); MEAN CORPUSCULAR VOLUME 95.8 FL (78-98); MEAN PLATELET VOLUME 8.8 FL (7.4-10.4); MONOCYTES # (AUTO) 1.3 X10'3 (0-0.9); MONOCYTES % (AUTO) 4.7 % (2-12); NEUTROPHILS # (AUTO) 23.9 X10'3 (1.8-7.7); NEUTROPHILS % (AUTO) 86.5 % (42-75); PLATELET COUNT 87 X10'3 (140-440); RED BLOOD COUNT 3.17 X10'6 (4.70-6.10); RED CELL DISTRIBUTION WIDTH 16.4 % (11.5-14.5)
[2017-07-02] MEDS: diatr meglu/diatrizoate 30ml oral sol.-(3 dose) bottle PO SCH ×2 (07:12→09:30)
[2017-07-02 07:15] LABS: WHITE BLOOD COUNT 27.6 X10'3 (4.5-11.0)
[2017-07-02] MEDS: K, MAG and/or Phos replacement - Verify level? MC SCH (08:00)
[2017-07-02] MEDS: famotidine 20mg tablet PO SCH ×2 (08:00→19:43)
[2017-07-02] MEDS: vitamin B comp w/Vit. C tab 1 TAB TABLET PO SCH (08:00)
[2017-07-02] MEDS ORDERED: epoetin 20,000 units/ml inj IV ONE (08:00)
[2017-07-02] MEDS: rifaximin 550mg tablet PO SCH ×2 (08:00→19:41)
[2017-07-02] MEDS: thiamine 100mg tablet PO SCH (08:00)
[2017-07-02] MEDS: folic acid 1mg tablet PO SCH (08:00)
[2017-07-02] MEDS: levoFLOXACIN-Levaquin 250mg/D5 50 ML IV SCH (08:14)
[2017-07-02] MEDS: amox tr/potassium clavulanate 500mg/125mg TAB PO SCH ×2 (08:30→17:12)
[2017-07-02] MEDS ORDERED: LIDOcaine 1%/PF (10mg/ml) 5ml vial ONE (09:10)
[2017-07-02 09:16] LABS: ANISOCYTOSIS 1+; PLATELET ESTIMATE DECREASED; TOTAL CELLS COUNTED 100
[2017-07-02 09:20] LABS: TARGET CELLS 1+
[2017-07-02 09:21] LABS: ACANTHOCYTES FEW; TEAR DROP CELLS FEW
[2017-07-02] MEDS ORDERED: heparin 1,000 units/ml 10ml inj HE ONE ×2 (10:35)
[2017-07-02 11:00] VITALS: BP 90/46
[2017-07-02 15:00] VITALS: BP 93/47
[2017-07-02] MEDS ORDERED: cefTAZidime inj. 1 GM in dextrose 5%-water 50ml 50 ML IV SCH (19:00)
[2017-07-02 19:27] VITALS: BP 92/49
[2017-07-02] MEDS: lactobacillus rhamnosus 10,000 MMU CELLS/CAPSULE PO SCH (19:41)
[2017-07-02 20:30] VITALS: BP 90/50
[2017-07-03] VITALS: BP 88/45
[2017-07-03] MEDS: HYDROcodone/acetaminophen 5mg/325mg tablet PO PRN ×3 (03:00→13:44)
[2017-07-03] MEDS: midodrine 5mg tablet PO SCH ×2 (04:29→13:43)
[2017-07-03 05:18] LABS: HEMATOCRIT 29.6 % (42.0-52.0); HEMOGLOBIN 10.2 g/dl (14.0-17.9); MEAN CORPUSCULAR HGB CONC 34.5 % (33.0-36.5); MEAN CORPUSCULAR VOLUME 95.4 FL (78-98); MEAN PLATELET VOLUME 9.2 FL (7.4-10.4); PLATELET COUNT 89 X10'3 (140-440); RED CELL DISTRIBUTION WIDTH 15.7 % (11.5-14.5)
[2017-07-03 05:30] LABS: PARTIAL THROMBOPLASTIN TIME 59 SECONDS (22-32); PROTHROMBIN TIME 20.1 SECONDS (9.0-12.0); WHITE BLOOD COUNT 25.5 X10'3 (4.5-11.0)
[2017-07-03 06:20] LABS: ALANINE AMINOTRANSFERASE 55 U/L (12-78); ALBUMIN 1.3 G/DL (3.4-5.0); ANION GAP 9 (8-16); BLOOD UREA NITROGEN 39 MG/DL (7-18); CHLORIDE 98 MMOL/L (99-107); CREATININE 6.49 MG/DL (0.60-1.10); MAGNESIUM 2.1 MG/DL (1.5-2.4); SODIUM 135 MMOL/L (135-145); TOTAL CARBON DIOXIDE 27.7 MMOL/L (24-32); eGFR 9 ML/MIN
[2017-07-03 06:59] LABS: ALKALINE PHOSPHATASE 276 IU/L (46-116); ASPARTATE AMINO TRANSFERASE 137 U/L (10-37)
[2017-07-03 07:03] LABS: TOTAL CELLS COUNTED 100
[2017-07-03 07:05] LABS: PLATELET ESTIMATE DECREASED
[2017-07-03 07:08] LABS: ANISOCYTOSIS 1+; TARGET CELLS FEW
[2017-07-03 07:09] LABS: POIKILOCYTOSIS FEW; TOXIC VACUOLATION FEW
[2017-07-03 07:10] LABS: SCHISTOCYTES FEW
[2017-07-03 07:12] LABS: ALBUMIN/GLOBULIN RATIO 0.3 (1.1-1.5); GLUCOSE 85 MG/DL (70-104); PHOSPHORUS 5.9 MG/DL (2.3-4.5); POTASSIUM 4.5 MMOL/L (3.5-5.1); TOTAL PROTEIN 5.4 G/DL (6.4-8.2)
[2017-07-03 07:17] LABS: BILIRUBIN,TOTAL 28.4 MG/DL (0.1-1.0)
[2017-07-03] MEDS: folic acid 1mg tablet PO SCH (07:52)
[2017-07-03] MEDS: rifaximin 550mg tablet PO SCH (07:52)
[2017-07-03] MEDS: vitamin B comp w/Vit. C tab 1 TAB TABLET PO SCH (07:53)
[2017-07-03] MEDS: amox tr/potassium clavulanate 500mg/125mg TAB PO SCH (07:53)
[2017-07-03] MEDS: thiamine 100mg tablet PO SCH (07:54)
[2017-07-03] MEDS: famotidine 20mg tablet PO SCH (07:55)
[2017-07-03] MEDS: lactobacillus rhamnosus 10,000 MMU CELLS/CAPSULE PO SCH (07:55)
[2017-07-03] MEDS: levoFLOXACIN-Levaquin 250mg/D5 50 ML IV SCH (07:56)
[2017-07-03] MEDS: K, MAG and/or Phos replacement - Verify level? MC SCH (08:00)
[2017-07-03 08:24] VITALS: BP 98/51
[2017-07-03 10:00] VITALS: BP 98/51
[2017-07-03] MEDS ORDERED: MESSAGE TO NURSING IV NR (10:00)
[2017-07-03 10:41] VITALS: BP 91/48
[2017-07-03 11:00] VITALS: BP 84/47
[2017-07-03] MEDS ORDERED: FAMO20TA8 PO (11:13)
[2017-07-03] MEDS ORDERED: LACT1CAP26 PO (11:13)
[2017-07-03] MEDS ORDERED: cefTAZidime inj. 1 GM in dextrose 5%-water 50ml 50 ML IV SCH (20:00)
== END 2017-07-03 13:55 | disposition home or self-care (01) | DRG 264 ==
LOC: ER 10:19 → ED HOLD 14:29 → EDBEDREQ 15:18 → EDBEDREQTM 15:18 → PCU 3S 16:35 → CMPBEDREQ 19:26 → SUR 3N 07-02 21:01
PROVIDERS: ADMIT Internal Medicine Critical Care Medicine; ATTEND Internal Medicine Critical Care Medicine
PROC: 0W9G3ZX Drainage of Peritoneal Cavity, Percutaneous Approach, Diagnostic (ICD-10-PCS; 2017-07-01)
PROC: 5A1D70Z Performance of Urinary Filtration, Intermittent, Less than 6 Hours Per Day (ICD-10-PCS; 2017-07-02)
PROC: 0W9G3ZX Drainage of Peritoneal Cavity, Percutaneous Approach, Diagnostic (ICD-10-PCS; principal; 2017-07-03)
DX: K70.11 Alcoholic hepatitis with ascites (principal); N17.9 Acute kidney failure, unspecified; N18.6 End stage renal disease; K72.90 Hepatic failure, unspecified without coma; K70.31 Alcoholic cirrhosis of liver with ascites; Z99.2 Dependence on renal dialysis; Z91.018 Allergy to other foods
CPT/HCPCS: 36415; 49083; 71045; 74176; 76700; 80053; 80069; 82042; 82140; 83605; 83735; 84100; 84484; 85025; 85610; 85730; 87040; 87070; 87075; 89051; A6250; G0257; J0713; J0885; J1644; J1956; J2001; J3370; J3430; J7030; J7060; Q9963

== ENCOUNTER 2017-07-20 21:28 | Inpatient (IN) | payer MEDICAID ==
[~2017-07-20] VITALS: Ht 175.3 cm; Wt 109.1 kg
[~2017-07-20 21:28] MED LIST changes: +FAMO20TA8 PO; +LACT1CAP26 PO
[2017-07-20] MEDS ORDERED: neomycin sulfate 500mg tablet PO ONE (21:45)
[2017-07-20] MEDS ORDERED: lactulose 20gm/30ml cup PO ONE (21:45)
[2017-07-20] MEDS ORDERED: normal saline 1000ML IV soln IVB ONE (22:35)
[2017-07-20 22:54] LABS: BASOPHILS % (AUTO) 0 % (0-1); EOSINOPHILS # (AUTO) 0.6 X10'3 (0-0.9); EOSINOPHILS % (AUTO) 2.4 % (0-6); HEMATOCRIT 28.5 % (42.0-52.0); HEMOGLOBIN 9.5 g/dl (14.0-17.9); LYMPHOCYTES # (AUTO) 1.9 X10'3 (1.1-4.8); LYMPHOCYTES % (AUTO) 7.7 % (21-51); MEAN CORPUSCULAR HEMOGLOBIN 31.2 PG (27.0-31.0); MEAN CORPUSCULAR HGB CONC 33.5 % (33.0-36.5); MEAN CORPUSCULAR VOLUME 93.3 FL (78-98); MEAN PLATELET VOLUME 11.8 FL (7.4-10.4); MONOCYTES # (AUTO) 1.8 X10'3 (0-0.9); MONOCYTES % (AUTO) 7.4 % (2-12); NEUTROPHILS # (AUTO) 20.2 X10'3 (1.8-7.7); NEUTROPHILS % (AUTO) 82.5 % (42-75); PLATELET COUNT 96 X10'3 (140-440); RED BLOOD COUNT 3.06 X10'6 (4.70-6.10); RED CELL DISTRIBUTION WIDTH 17.9 % (11.5-14.5); WHITE BLOOD COUNT 24.5 X10'3 (4.5-11.0)
[2017-07-20 23:06] LABS: INR 2.6 INR; PARTIAL THROMBOPLASTIN TIME 64 SECONDS (22-32); PROTHROMBIN TIME 25.8 SECONDS (9.0-12.0)
[2017-07-20 23:08] LABS: ANISOCYTOSIS 2+; PLATELET ESTIMATE DECREASED; POIKILOCYTOSIS FEW; TOTAL CELLS COUNTED 100
[2017-07-20 23:09] LABS: ELLIPTOCYTES FEW; SCHISTOCYTES FEW; TARGET CELLS 1+
[2017-07-20 23:20] LABS: ALANINE AMINOTRANSFERASE 51 U/L (12-78); ALBUMIN 1.1 G/DL (3.4-5.0); ALKALINE PHOSPHATASE 259 IU/L (46-116); BILIRUBIN,TOTAL 15.9 MG/DL (0.1-1.0); BLOOD UREA NITROGEN 55 MG/DL (7-18); CALCIUM 8.3 MG/DL (8.5-10.1); CHLORIDE 92 MMOL/L (99-107); MAGNESIUM 2.1 MG/DL (1.5-2.4); TOTAL CARBON DIOXIDE 25.1 MMOL/L (24-32)
[2017-07-20 23:43] LABS: ALBUMIN/GLOBULIN RATIO 0.3 (1.1-1.5); ANION GAP 17 (8-16); ASPARTATE AMINO TRANSFERASE 138 U/L (10-37); BUN/CREATININE RATIO 5.5 (5.4-32.0); CREATINE KINASE 21 U/L (39-308); CREATININE 9.93 MG/DL (0.60-1.10); GLUCOSE 97 MG/DL (70-104); PHOSPHORUS 7.8 MG/DL (2.3-4.5); POTASSIUM 4.3 MMOL/L (3.5-5.1); SODIUM 134 MMOL/L (135-145); TOTAL PROTEIN 5.5 G/DL (6.4-8.2); eGFR 6 ML/MIN
[2017-07-21] MEDS ORDERED: cefepime 1GM/NS ADD-VANTAGE 100 ML IV SCH ×2 (01:00)
[2017-07-21] MEDS ORDERED: acetaminophen 650mg rectal suppository RC PRN (01:25)
[2017-07-21] MEDS ORDERED: diphenhydrAMINE 25mg capsule PO PRN (01:25)
[2017-07-21] MEDS ORDERED: diphenhydrAMINE 50 mg/ml inj IV PRN (01:25)
[2017-07-21] MEDS ORDERED: ondansetron/PF 4mg/2ml inj IV PRN (01:25)
[2017-07-21] MEDS ORDERED: acetaminophen 325mg tablet PO PRN (01:25)
[2017-07-21 03:00] VITALS: BP 97/49
[2017-07-21] MEDS: calcium acetate 667mg (PhosLO) capsule PO SCH ×3 (07:46→17:12)
[2017-07-21] MEDS: rifaximin 550mg tablet PO SCH ×2 (07:47→21:07)
[2017-07-21] MEDS ORDERED: midodrine tablet 2.5 MG TABLET PO SCH (08:00)
[2017-07-21] MEDS ORDERED: albumin (human) 25% 100 ML IV solution IV ONE (08:15)
[2017-07-21 08:22] VITALS: BP 85/41
[2017-07-21] MEDS ORDERED: albumin (human) 25% 100ml IV 100 ML IV PRN (10:00)
[2017-07-21] MEDS ORDERED: epoetin 20,000 units/ml inj IV ONE (10:00)
[2017-07-21] MEDS ORDERED: heparin 1,000 units/ml 10ml inj HE ONE ×2 (10:05)
[2017-07-21 11:48] VITALS: BP 94/39
[2017-07-21] MEDS: midodrine 5mg tablet PO SCH ×2 (12:19→17:12)
[2017-07-21 18:40] VITALS: BP_SYST 73; BP_SYST 80; BP_DIAS 37; BP_DIAS 42
[2017-07-21] MEDS: lactobacillus rhamnosus 10,000 MMU CELLS/CAPSULE PO SCH (21:07)
[2017-07-22] VITALS (15 sets, daily range): BP systolic 65–93; BP diastolic 35–51
[2017-07-22 05:43] LABS: BASOPHILS % (AUTO) 0.1 % (0-1); EOSINOPHILS % (AUTO) 0 % (0-6); HEMOGLOBIN 7.2 g/dl (14.0-17.9); LYMPHOCYTES % (AUTO) 9.7 % (21-51); MEAN CORPUSCULAR HEMOGLOBIN 32.1 PG (27.0-31.0); MEAN CORPUSCULAR HGB CONC 34.9 % (33.0-36.5); MEAN CORPUSCULAR VOLUME 91.9 FL (78-98); MEAN PLATELET VOLUME 9.1 FL (7.4-10.4); MONOCYTES # (AUTO) 1.3 X10'3 (0-0.9); MONOCYTES % (AUTO) 6.2 % (2-12); NEUTROPHILS # (AUTO) 17.1 X10'3 (1.8-7.7); PLATELET COUNT 57 X10'3 (140-440); RED BLOOD COUNT 2.24 X10'6 (4.70-6.10); WHITE BLOOD COUNT 20.4 X10'3 (4.5-11.0)
[2017-07-22 06:06] LABS: ALANINE AMINOTRANSFERASE 37 U/L (12-78); ALBUMIN 1.8 G/DL (3.4-5.0); ALKALINE PHOSPHATASE 220 IU/L (46-116); ANION GAP 11 (8-16); BLOOD UREA NITROGEN 36 MG/DL (7-18); BUN/CREATININE RATIO 5.1 (5.4-32.0); CALCIUM 8.5 MG/DL (8.5-10.1); CHLORIDE 96 MMOL/L (99-107); CREATININE 7.06 MG/DL (0.60-1.10); SODIUM 136 MMOL/L (135-145); TOTAL CARBON DIOXIDE 28.7 MMOL/L (24-32); eGFR 9 ML/MIN
[2017-07-22 06:07] LABS: ALBUMIN/GLOBULIN RATIO 0.6 (1.1-1.5); ASPARTATE AMINO TRANSFERASE 114 U/L (10-37); GLUCOSE 74 MG/DL (70-104); POTASSIUM 4.1 MMOL/L (3.5-5.1); TOTAL PROTEIN 4.9 G/DL (6.4-8.2)
[2017-07-22 06:09] LABS: HEMATOCRIT 20.6 % (42.0-52.0)
[2017-07-22 06:53] LABS: ANISOCYTOSIS 2+; ELLIPTOCYTES FEW; HYPOCHROMASIA 1+; LARGE PLATELETS FEW; PLATELET ESTIMATE DECREASED; SCHISTOCYTES 1+; TARGET CELLS 2+
[2017-07-22] MEDS ORDERED: epoetin 20,000 units/ml inj IV ONE (08:20)
[2017-07-22] MEDS ORDERED: heparin 1,000 units/ml 10ml inj HE ONE ×2 (08:25)
[2017-07-22] MEDS: midodrine 5mg tablet PO SCH ×3 (09:00→17:54)
[2017-07-22] MEDS: lactobacillus rhamnosus 10,000 MMU CELLS/CAPSULE PO SCH ×2 (09:01→19:54)
[2017-07-22] MEDS: calcium acetate 667mg (PhosLO) capsule PO SCH ×3 (09:02→18:00)
[2017-07-22] MEDS: rifaximin 550mg tablet PO SCH ×2 (09:02→19:55)
[2017-07-22] MEDS: cefepime inj. 1 GM in dextrose 5%-water 50ml 50 ML IV SCH (09:07)
[2017-07-22 09:41] LABS: TOTAL IRON BINDING CAPACITY 29 UG/DL (259-388)
[2017-07-22 09:52] LABS: % IRON SATURATION 134 % (11-46); IRON 39 UG/DL (53-167)
[2017-07-22 10:27] LABS: FERRITIN 3354 NG/ML (26-388)
[2017-07-22] MEDS: vasopressin inj. 60 UNIT in normal saline 100ml IV soln 97 ML IV SCH (12:37)
[2017-07-22] MEDS: albumin (human) 25% 100ml IV 100 ML IV PRN ×2 (12:46→12:53)
[2017-07-23] VITALS (18 sets, daily range): BP systolic 62–103; BP diastolic 22–51
[2017-07-23 06:07] LABS: BASOPHILS % (AUTO) 0.2 % (0-1); EOSINOPHILS # (AUTO) 0.2 X10'3 (0-0.9); EOSINOPHILS % (AUTO) 1.1 % (0-6); LYMPHOCYTES # (AUTO) 2.1 X10'3 (1.1-4.8); LYMPHOCYTES % (AUTO) 10.9 % (21-51); MEAN CORPUSCULAR HEMOGLOBIN 31.8 PG (27.0-31.0); MEAN CORPUSCULAR HGB CONC 34.5 % (33.0-36.5); MEAN CORPUSCULAR VOLUME 92.3 FL (78-98); MEAN PLATELET VOLUME 8.9 FL (7.4-10.4); MONOCYTES # (AUTO) 1.5 X10'3 (0-0.9); MONOCYTES % (AUTO) 7.5 % (2-12); NEUTROPHILS # (AUTO) 15.5 X10'3 (1.8-7.7); NEUTROPHILS % (AUTO) 80.3 % (42-75); PLATELET COUNT 59 X10'3 (140-440); RED BLOOD COUNT 2.04 X10'6 (4.70-6.10); RED CELL DISTRIBUTION WIDTH 17.6 % (11.5-14.5); WHITE BLOOD COUNT 19.3 X10'3 (4.5-11.0)
[2017-07-23 06:14] LABS: HEMATOCRIT 18.9 % (42.0-52.0); HEMOGLOBIN 6.5 g/dl (14.0-17.9)
[2017-07-23 06:26] LABS: ALANINE AMINOTRANSFERASE 37 U/L (12-78); ALBUMIN 2.5 G/DL (3.4-5.0); ALKALINE PHOSPHATASE 199 IU/L (46-116); ANION GAP 9 (8-16); BILIRUBIN,TOTAL 14.6 MG/DL (0.1-1.0); BLOOD UREA NITROGEN 27 MG/DL (7-18); CALCIUM 8.7 MG/DL (8.5-10.1); CHLORIDE 100 MMOL/L (99-107); SODIUM 138 MMOL/L (135-145); TOTAL CARBON DIOXIDE 29.1 MMOL/L (24-32)
[2017-07-23 06:27] LABS: ALBUMIN/GLOBULIN RATIO 0.9 (1.1-1.5); ASPARTATE AMINO TRANSFERASE 96 U/L (10-37); BUN/CREATININE RATIO 4.8 (5.4-32.0); CREATININE 5.63 MG/DL (0.60-1.10); GLUCOSE 62 MG/DL (70-104); PHOSPHORUS 4.5 MG/DL (2.3-4.5); POTASSIUM 4.4 MMOL/L (3.5-5.1); TOTAL PROTEIN 5.4 G/DL (6.4-8.2); eGFR 11 ML/MIN
[2017-07-23 07:51] LABS: ANISOCYTOSIS 2+; HYPOCHROMASIA 2+; PLATELET ESTIMATE DECREASED
[2017-07-23 07:52] LABS: ELLIPTOCYTES FEW; TARGET CELLS 2+
[2017-07-23] MEDS: rifaximin 550mg tablet PO SCH (08:06)
[2017-07-23] MEDS: midodrine 5mg tablet PO SCH ×2 (08:06→12:00)
[2017-07-23] MEDS: cefepime inj. 1 GM in dextrose 5%-water 50ml 50 ML IV SCH (08:07)
[2017-07-23] MEDS: lactobacillus rhamnosus 10,000 MMU CELLS/CAPSULE PO SCH (08:08)
[2017-07-23] MEDS: calcium acetate 667mg (PhosLO) capsule PO SCH ×2 (08:15→13:00)
[2017-07-23 08:17] LABS: HBSAG SCREEN Negative (Negative)
[2017-07-23] MEDS ORDERED: NORepinephrine 8mg/ 250ml NS 250 ML IV SCH (08:35)
[2017-07-23 09:14] LABS: INR 2.5 INR; PROTHROMBIN TIME 25.3 SECONDS (9.0-12.0)
[2017-07-23] MEDS ORDERED: morphine 4 MG/ML inj SYRINge IV PRN (10:20)
[2017-07-23] MEDS: vasopressin inj. 60 UNIT in normal saline 100ml IV soln 97 ML IV SCH (10:33)
[2017-07-23] MEDS ORDERED: ipratropium/albuterol 3ml nebule NEB PRN (14:05)
[2017-07-23] MEDS: LORazepam 2 mg/ml vial IV PRN ×5 (16:15→22:10)
[2017-07-23] MEDS: morphine 4 MG/ML inj SYRINge IV PRN ×4 (17:44→22:10)
[2017-07-24] MEDS: LORazepam 2 mg/ml vial IV PRN ×2 (00:15→01:55)
[2017-07-24] MEDS: morphine 4 MG/ML inj SYRINge IV PRN ×2 (00:15→01:55)
== END 2017-07-24 05:51 | disposition expired | DRG 280 ==
LOC: ER 21:29 → ED HOLD 07-21 01:35 → SUR 3N 07-21 02:59 → CICU 2S 07-22 11:01
PROVIDERS: ADMIT Internal Medicine Critical Care Medicine; ATTEND Internal Medicine Critical Care Medicine
PROC: 5A1D70Z Performance of Urinary Filtration, Intermittent, Less than 6 Hours Per Day (ICD-10-PCS; principal; 2017-07-21)
PROC: 5A1D70Z Performance of Urinary Filtration, Intermittent, Less than 6 Hours Per Day (ICD-10-PCS; 2017-07-22)
DX: K70.40 Alcoholic hepatic failure without coma (principal); K70.31 Alcoholic cirrhosis of liver with ascites; K76.7 Hepatorenal syndrome; I95.9 Hypotension, unspecified; N18.6 End stage renal disease; K70.11 Alcoholic hepatitis with ascites; E87.70 Fluid overload, unspecified; R74.0 Nonspecific elevation of levels of transaminase and lactic acid dehydrogenase [LDH]; Z51.5 Encounter for palliative care; Z66 Do not resuscitate; F10.10 Alcohol abuse, uncomplicated; Z88.8 Allergy status to other drugs, medicaments and biological substances; Z99.2 Dependence on renal dialysis; Z79.899 Other long term (current) drug therapy
CPT/HCPCS: 36415; 70450; 71045; 80053; 82140; 82550; 82728; 82948; 83540; 83550; 83735; 84100; 84484; 85025; 85610; 85730; 86885; 86900; 86901; 86922; 87070; 87340; 90935; 97110; 97162; 97530; 99285; A6213; G0257; J0692; J0885; J1644; J2060; J2270; J3490; J7030; J7060; P9047